=== PATIENT | female | born 1990 | race Caucasian/White ===

== ENCOUNTER 2016-08-08 13:48 | Emergency (ER) | payer OTHER ==
[~2016-08-08 13:48] MED LIST: PYRI200T4 PO; SULF1TAB47 PO; Z.0.NO CURRENT MEDS
[2016-08-08] MEDS ORDERED: TRICTAB PO (15:21)
[2016-08-08] MEDS ORDERED: METR500T10 PO (15:21)
== END 2016-08-08 15:43 | disposition home or self-care (01) ==
LOC: HOBED 13:48
DX: O26.899 Other specified pregnancy related conditions, unspecified trimester (principal); Z3A.00 Weeks of gestation of pregnancy not specified
CPT/HCPCS: 76815; 84112

== ENCOUNTER 2016-08-26 08:51 | Emergency (ER) | payer OTHER ==
[~2016-08-26 08:51] MED LIST changes: +METR500T10 PO; -PYRI200T4 PO; -SULF1TAB47 PO; +TRICTAB PO; -Z.0.NO CURRENT MEDS
--- NOTE | 2016-08-26 09:41 | PD ---
HPI Chief Complaint Reduced movements 2 days Date Seen: August 26, 2016 Time Seen: 09:15 Travel History International Travel<30 Days: No Contact w/Intl Traveler<30Days: No Known Affected Area: No History of Present Illness HPI Pt is a 25yo at 24 weeks and 4 days gestation. Patient reports previously feeling movements until 2 days ago. No fevers or chills. Denies any febrile contacts. No vaginal bleeding or leaking fluid. Para: 0 : 1 Last Menstrual Period: Mar 07, 2016 Miscarriage: 0 : 0 History Past Medical History Narrative Medical Nil significant Medical History: Denies Significant Hx Obstetric History Obstetric History history uncomplicated to date Past Surgical History Narrative Surgical Nil previous Family History Family History: Negative Social History Alcohol Use: No Tobacco Use: No Substance Abuse: No Allergies-Medications (Allergen,Severity, Reaction): Coded Allergies: No Known Allergies (Unverified , 08/07/11) Home Meds Reported Medications Vit-Ferrous Fumarate ()1 Tab Tab1 Tab PO DAILY #30 TAB Ref 0 08/08/16 Metronidazole 500 Mg [id number] Mg PO BID Ref 0 08/08/16 Review of Systems Except as stated in HPI: all other systems reviewed are Neg Physical Exam Narrative GENERAL: Well-nourished, well-developed patient. SKIN: Warm and dry. HEAD: Normocephalic and atraumatic. EYES: No scleral icterus. No injection or drainage. ENT: No nasal drainage noted. Mucous membranes pink. Airway patent. NECK: Supple, trachea midline. No JVD. CARDIOVASCULAR: Regular rate and rhythm without murmurs, gallops, or rubs. RESPIRATORY: Breath sounds equal bilaterally. No accessory muscle use. BREASTS: Bilateral exam showed no masses , no retractions, no nipple discharge. ABDOMEN/GI: Abdomen soft, non-tender, bowel sounds present, no rebound, no guarding Gravid to [24] weeks size Fundal Height: [-] GENITOURINARY: External Genitalia: intact and normal in appearance BUS glands: [-] Cervix: [-] Dilatation: [-] Effacement: [-] Station: [-] Presentation: [-] Membranes: [intact or ruptured] Uterine Contractions: [-] FHT's: Category: [1] Baseline: [150] Reactive: [-] Variability: [-] Decels: [-] movements audible NO ABDOMINAL TENDEERNESS EXTREMITIES: No cyanosis or edema. BACK: Nontender without obvious deformity. No CVA tenderness. NEUROLOGICAL: Awake and alert. Motor and sensory grossly within normal limits. Five out of 5 muscle strength in all muscle groups. Normal speech. Data Data Vital Signs Reviewed: Yes [facility] Medical Record Reviewed: Yes Plan 25yo , presents with reduced movements. Audible movements heard. Reassuring FHR on monitor. Active movements now felt by patient prior to discharge Diagnosis Diagnosis: Primary Impression: Decreased movements, affecting management of mother, antepartum Disposition: 01 DISCHARGE HOME Patient Instructions: Movement (ED) Dave De La Rosa MD August 26, 2016 09:41
== END 2016-08-26 09:52 | disposition home or self-care (01) ==
LOC: HOBED 08:51
DX: O36.8120 Decreased fetal movements, second trimester, not applicable or unspecified (principal); Z3A.24 24 weeks gestation of pregnancy
CPT/HCPCS: 59025

== ENCOUNTER 2016-11-23 10:17 | Emergency (ER) | payer OTHER ==
[~2016-11-23] VITALS: Ht 172.7 cm; Wt 74.0 kg
--- NOTE | 2016-11-23 11:42 | PD ---
HPI Chief Complaint decreased movement Date Seen: Nov 23, 2016 Time Seen: 11:39 Travel History International Travel<30 Days: No Contact w/Intl Traveler<30Days: No Known Affected Area: No History of Present Illness HPI 25-year-old who is at 37 weeks 2 days comes in complaining of decreased movement. Patient states that yesterday she felt very little movement as well as the fact this morning as well he came in to be checked. Patient states that she's been getting weekly ultrasounds due to a growth that has been at the 33rd percentile but with normal fluid and normal Doppler blood flow. No other complaints at this time denies vaginal bleeding contractions or vaginal bleeding. Weeks Gestation: 37 Para: 0 : 1 History Past Medical History Medical History: Denies Significant Hx Past Surgical History Surgical History: No Previous Surgery Family History Family History: Negative Social History Alcohol Use: No Tobacco Use: No Substance Abuse: No Allergies-Medications (Allergen,Severity, Reaction): Coded Allergies: No Known Allergies (Unverified , 08/07/11) Home Meds Reported Medications Vit-Ferrous Fumarate () 1 Tab Tab, 1 TAB PO DAILY for Nutritional Supplement, #30 TAB 0 Refills 08/08/16 Metronidazole (Metronidazole) 500 Mg Tab, 500 MG PO BID for Infection, TAB 0 Refills 08/08/16 Review of Systems Except as stated in HPI: all other systems reviewed are Neg Physical Exam Narrative GENERAL: Well-nourished, well-developed patient. SKIN: Warm and dry. HEAD: Normocephalic and atraumatic. EYES: No scleral icterus. No injection or drainage. ENT: No nasal drainage noted. Mucous membranes pink. Airway patent. NECK: Supple, trachea midline. No JVD. ABDOMEN/GI: Abdomen soft, non-tender, bowel sounds present, no rebound, no guarding Gravid to [36-] weeks size Fundal Height: [-] GENITOURINARY: Deferred External Genitalia: intact and normal in appearance BUS glands: [-Normal] Cervix: [-] Dilatation: [-] Effacement: [-] Station: [-] Presentation: [-] Membranes: [intact or ruptured] Uterine Contractions: [-Absent] FHT's: Category: [1-] Baseline: [140] Reactive: [Moderate-] Variability: [Moderate-] Decels: [-Absent] EXTREMITIES: No cyanosis or edema. BACK: Nontender without obvious deformity. No CVA tenderness. NEUROLOGICAL: Awake and alert. Motor and sensory grossly within normal limits. Five out of 5 muscle strength in all muscle groups. Normal speech. Data Data Vital Signs Reviewed: Yes [facility] Medical Record Reviewed: Yes Plan 25-year-old at 37 2/7 weeks with decreased movement with a normal nonstress test Patient has an appointment on for a BPP and NST Diagnosis Diagnosis: Primary Impression: Decreased movements, affecting management of mother, antepartum Additional Impression: 37 weeks gestation of Disposition: DISCHARGE HOME Lauren Yap MD Nov 23, 2016 11:42
== END 2016-11-23 12:15 | disposition home or self-care (01) ==
LOC: HOBED 10:17
DX: O36.8130 Decreased fetal movements, third trimester, not applicable or unspecified (principal); Z3A.37 37 weeks gestation of pregnancy
CPT/HCPCS: 59025

== ENCOUNTER 2016-11-27 08:22 | Inpatient (IN) | payer OTHER ==
[~2016-11-27] VITALS: Ht 172.7 cm; Wt 77.0 kg
[2016-11-27] VITALS (15 sets, daily range): BP systolic 101–129; BP diastolic 54–82; PULSE 60–107; RESP 15–18; TEMP 97.7–98.6
[2016-11-27] MEDS ORDERED: MINERAL OIL 10 ML VIAL TOPICAL PRN (08:45)
[2016-11-27] MEDS ORDERED: OXYTOCIN 30 UNITS-500ML PREMIX 500 ML IV ONE (08:45)
[2016-11-27] MEDS ORDERED: ONDANSETRON HCL 4 MG/2 ML VIAL IV PRN (08:45)
[2016-11-27] MEDS ORDERED: LIDOCAINE HCL 1% 50 ML VIAL INFIL PRN (08:45)
[2016-11-27] MEDS ORDERED: LACTATED RINGER'S 1000 ML INJ 1,000 ML IV PRN (08:45)
[2016-11-27] MEDS ORDERED: LIDOCAINE HCL 1% 50 ML VIAL I-DERMAL PRN (08:45)
[2016-11-27] MEDS ORDERED: SODIUM CHLORID 0.9% 500 ML INJ 500 ML IV PRN (08:45)
[2016-11-27] MEDS ORDERED: SODIUM CHLOR 0.9% 1000 ML INJ 1,000 ML OTHER PRN (08:45)
[2016-11-27] MEDS ORDERED: CITRIC ACID-SODIUM CITRATE LIQ 30 ML UDC PO SCH (08:45)
[2016-11-27] MEDS ORDERED: SODIUM CHLOR 0.9% 1000 ML INJ 1,000 ML IV PRN (09:05)
[2016-11-27] MEDS ORDERED: MISOPROSTOL 25 MCG SUPP VAGINAL ONE (09:15)
[2016-11-27] MEDS: LACTATED RINGER'S 1000 ML INJ 1,000 ML IV SCH ×3 (09:25→23:13)
[2016-11-27 09:30] LABS: AUTOMATED NEUTROPHIL # 7.2 TH/MM3 (1.8-7.7); BASOPHIL % 0.3 % (0.0-2.0); EOSINOPHIL % 0.4 % (0.0-4.0); HEMATOCRIT 35.7 % (35.0-46.0); HEMO FLAGS DIFF FINAL; LYMPH % 17.6 % (9.0-44.0); LYMPHOCYTE # 1.7 TH/MM3 (1.0-4.8); MEAN CELL VOLUME 89.2 FL (80.0-100.0); MEAN CORPUSCULAR HEMOGLOBIN 30.6 PG (27.0-34.0); MEAN CORPUSCULAR HGB CONC 34.4 % (32.0-36.0); MONO % 6.3 % (0.0-8.0); NEUT % 75.4 % (16.0-70.0); PLATELET COUNT 216 TH/MM3 (150-450); RED CELL DISTRIBUTION WIDTH 12.8 % (11.6-17.2); WHITE BLOOD COUNT 9.5 TH/MM3 (4.0-11.0)
[2016-11-27 09:32] LABS: BLOOD, URINE NEG (NEG); GLUCOSE,URINE NEG (NEG); KETONE, URINE NEG (NEG); MUCUS URINE FEW /lpf (OCC); NITRITE,URINE NEG (NEG); URINE COLOR YELLOW (YELLW/STRAW)
[2016-11-27 09:36] LABS: COMMENT (UR) CULT NOT INDICATED; CULTURE IF INDICATED CULT NOT INDICATED
--- NOTE | 2016-11-27 11:33 | HHI.HP ---
HPI Travel History International Travel<30 Days: No Contact w/Intl Traveler<30Days: No Known Affected Area: No History of Present Illness HPI 25 yo G1 with iup at 37w6d by first trimester u/s admitted for iol for iugr. She has been followed with weekly BPP and dopplers starting at 35 wk when AC and HC were noted to be under 5%ile. She notes that she is now having decreased movement; BPP 8/8 in office yesterday. Irreg ctx, no vb.lof. Para: 0 : 1 History Past Medical History Narrative Medical hsv exposrue (FOB), rubella equivocal, h/o adhd and does not need medication, mild hydronephrosis, prior recurrent uti and microscopic hematuria Past Surgical History Narrative Surgical wisdome tooth extraction. colposcopy Family History Family History: Negative Social History Alcohol Use: No Tobacco Use: No Substance Abuse: No Allergies-Medications (Allergen,Severity, Reaction): Coded Allergies: No Known Allergies (Unverified , 08/07/11) Home Meds Reported Medications Vit-Ferrous Fumarate () 1 Tab Tab, 1 TAB PO DAILY for Nutritional Supplement, #30 TAB 0 Refills 08/08/16 Metronidazole (Metronidazole) 500 Mg Tab, 500 MG PO BID for Infection, TAB 0 Refills 08/08/16 Review of Systems General / Constitutional: No: Fever, Weight Gain, Chills, Other Eyes: No: Diploplia, Blurred Vision, Visual changes, Pain, Photophobia HENT: No: Headaches, Vertigo, Lightheadedness Cardiovascular: No: Irregular Rhythm, Chest Pain or Discomfort, Palpitations, Tachycardia, Syncope, Varicosities, Edema, Cyanosis Respiratory: No: Cough, Short of Breath, Other Gastrointestinal: No: Nausea, Vomiting, Diarrhea Genitourinary: No: Decreased Urinary Output, Oliguria Musculoskeletal: No: Limited ROM, Weakness, Cramping, Edema, Pain Skin: No Rash, No Itching, No Dryness, No Lumps, No Change in Pigmentation, No Change in Nails, No Alopecia, No Lesions Neurologic: No: Weakness, Dizziness, Syncope, Focal Abnormalities, Coordination Problem, Headache, Slurred Speech, Seizures Psychiatric: No: Depression, Suicidal Ideations, Homicidal Ideation Endocrine: No: Heat Intolerance, Cold Intolerance, Polydipsia, Polyuria, Other Physical Exam Vital Signs Date Time Temp Pulse Resp B/P (MAP) Pulse Ox O2 Delivery O2 Flow Rate FiO2 11/27/16 09:30 98.6 16 11/27/16 09:23 89 120/80 (93) 11/27/16 08:44 107 117/76 (90) Narrative GENERAL: Well-nourished, well-developed patient. SKIN: Warm and dry. HEAD: Normocephalic and atraumatic. EYES: No scleral icterus. No injection or drainage. ENT: No nasal drainage noted. Mucous membranes pink. Airway patent. NECK: Supple, trachea midline. No JVD. CARDIOVASCULAR: Regular rate and rhythm without murmurs, gallops, or rubs. RESPIRATORY: Breath sounds equal bilaterally. No accessory muscle use. BREASTS: Bilateral exam showed no masses , no retractions, no nipple discharge. ABDOMEN/GI: Abdomen soft, non-tender, bowel sounds present, no rebound, no guarding Gravid [id number] size GENITOURINARY: External Genitalia: intact and normal in appearance Cervix: ft/50/-2 posterior, soft Presentation:ceph Membranes: [intact Uterine Contractions: [-] FHT's: Category:I EXTREMITIES: No cyanosis or edema. BACK: Nontender without obvious deformity. No CVA tenderness. NEUROLOGICAL: Awake and alert. Motor and sensory grossly within normal limits. Five out of 5 muscle strength in all muscle groups. Normal speech. Caprini VTE Risk Assessment Caprini VTE Risk Assessment: No/Low Risk (score <= 1) VTE Pharm Contraindication: High risk for bleeding Caprini Risk Assessment Model Point Value = 1 Point Value = 2 Point Value = 3 Point Value = 5 Age 41-60 Minor surgery BMI > 25 kg/m2 Swollen legs Varicose veins or History of unexplained or recurrent spontaneous Oral contraceptives or hormone replacement Sepsis (< 1 month) Serious lung disease, including pneumonia (< 1 month) Abnormal pulmonary function Acute myocardial infarction Congestive heart failure (< 1 month) History of inflammatory bowel disease Medical patient at bed rest Age 61-74 Arthroscopic surgery Major open surgery (> 45 min) Laparoscopic surgery (> 45 min) Malignancy Confined to bed (> 72 hours) Immobilizing plaster cast Central venous access Age >= 75 History of VTE Family history of VTE Factor V Leiden Prothrombin [id number] Lupus anticoagulant Anticardiolipin antibodies Elevated serum homocysteine Heparin-induced thrombocytopenia Other congenital or acquired thrombophilia Stroke (< 1 month) Elective arthroplasty Hip, pelvis, or leg fracture Acute spinal cord injury (< 1 month) Prophylaxis Regimen Total Risk Factor Score Risk Level Prophylaxis Regimen 0-1 Low Early ambulation 2 Moderate Order ONE of the following: *Sequential Compression Device (SCD) *Heparin 5000 units SQ BID 3-4 Higher Order ONE of the following medications: *Heparin 5000 units SQ TID *Enoxaparin/Lovenox 40 mg SQ daily (WT < 150 kg, CrCl > 30 mL/min) *Enoxaparin/Lovenox 30 mg SQ daily (WT < 150 kg, CrCl > 10-29 mL/min) *Enoxaparin/Lovenox 30 mg SQ BID (WT < 150 kg, CrCl > 30 mL/min) AND/OR *Sequential Compression Device (SCD) 5 or more Highest Order ONE of the following medications: *Heparin 5000 units SQ TID (Preferred with Epidurals) *Enoxaparin/Lovenox 40 mg SQ daily (WT < 150 kg, CrCl > 30 mL/min) *Enoxaparin/Lovenox 30 mg SQ daily (WT < 150 kg, CrCl > 10-29 mL/min) *Enoxaparin/Lovenox 30 mg SQ BID (WT < 150 kg, CrCl > 30 mL/min) AND *Sequential Compression Device (SCD) Data Data Vital Signs Reviewed: Yes Orders Orders Admit To Inpatient (11/27/16 ) Vital Signs (Adult) .Per protocol (11/27/16 08:45) Heart (11/27/16 08:45) Amnioinfusion (11/27/16 08:45) Urinary Catheter Management .ONCE (11/27/16 08:45) Diet Liquid (11/27/16 Breakfast) Lactated Ringer's 1000 Ml Inj (Lr 1000 M (11/27/16 08:45) Lactated Ringer's 1000 Ml Inj (Lr 1000 M (11/27/16 08:45) Sodium Chlorid 0.9% 500 Ml Inj (Ns 500 M (11/27/16 08:45) Sodium Chlor 0.9% 1000 Ml Inj (Ns 1000 M (11/27/16 09:05) Lidocaine 1% Inj (50 Ml) (Xylocaine 1% I (11/27/16 08:45) Citric Acid-Sodium Citrate Liq (Bicitra (11/27/16 08:45) Ondansetron Inj (Zofran Inj) (11/27/16 08:45) Fentanyl Inj (Fentanyl Inj) (11/27/16 08:45) Fentanyl Inj (Fentanyl Inj) (11/27/16 08:45) Complete Blood Count With Diff (11/27/16 08:45) Hold Clot (11/27/16 08:45) Abo/Rh Blood Type (11/27/16 08:45) Urinalysis - C+S If Indicated (11/27/16 08:45) Resp Oxygen Non Rebreathe Mask (11/27/16 ) ^ Epidural / Intrathecal Infus (11/27/16 08:45) Oxytocin 30 Units-500ml Premix (Pitocin (11/27/16 08:45) Lidocaine 1% Inj (50 Ml) (Xylocaine 1% I (11/27/16 08:45) Light Mineral Oil (Muri-Lube Oil) (11/27/16 08:45) ^ Labor Induction (11/27/16 08:45) ^ Vaginal Insert (11/27/16 08:45) ^ Vaginal Lavage (11/27/16 08:45) Heart (11/27/16 08:45) Sodium Chlor 0.9% 1000 Ml Inj (Ns 1000 M (11/27/16 08:45) Misoprostol Supp (Cytotec Supp) (11/27/16 09:15) Misoprostol Supp (Cytotec Supp) (11/27/16 12:45) Inpatient Certification (11/27/16 ) Specimen To Be Collected PRN (11/27/16 08:45) Group B Strep: Negative Labs Laboratory Tests Test 11/27/16 08:50 White Blood Count 9.5 Red Blood Count 4.00 Hemoglobin 12.3 Hematocrit 35.7 Mean Corpuscular Volume 89.2 Mean Corpuscular Hemoglobin 30.6 Mean Corpuscular Hemoglobin Concent 34.4 Red Cell Distribution Width 12.8 Platelet Count 216 Mean Platelet Volume 7.7 Neutrophils (%) (Auto) 75.4 Lymphocytes (%) (Auto) 17.6 Monocytes (%) (Auto) 6.3 Eosinophils (%) (Auto) 0.4 Basophils (%) (Auto) 0.3 Neutrophils # (Auto) 7.2 Lymphocytes # (Auto) 1.7 Monocytes # (Auto) 0.6 Eosinophils # (Auto) 0.0 Basophils # (Auto) 0.0 CBC Comment DIFF FINAL Differential Comment Urine Color YELLOW Urine Turbidity CLEAR Urine pH 6.0 Urine Specific [place] 1.014 Urine Protein NEG Urine Glucose (UA) NEG Urine Ketones NEG Urine Occult Blood NEG Urine Nitrite NEG Urine Bilirubin NEG Urine Urobilinogen LESS THAN 2.0 Urine Leukocyte Esterase TRACE Urine WBC 1 Urine Mucus FEW Microscopic Urinalysis Comment CULT NOT INDICATED Assessment/Plan Problem List: (1) IUGR (intrauterine growth restriction) affecting care of mother ICD Codes: O36.5990 - Maternal care for other known or suspected poor growth, unspecified trimester, not applicable or unspecified Status: Chronic Qualifiers: Qualified Codes: O36.5930 - Maternal care for other known or suspected poor growth, third trimester, not applicable or unspecified Assessment and Plan 25 yo G1 with iup 37w6d by first trimester u/s here for iol for iugr 1) IOL- will start with cervical ripening agent. Aware that induction can be 24- 36 hours, possibility of failure 2) Exposure to HVS- on Valtrex prophylaxis. No lesions on exam; no prodrome 3) Rubella equivocal- pp vaccination 4) Fetus- IUGR, nl dopplers and bpp weekly in office. Cephalic 5) GBS negative 6) H/o ADHD- no adderall use during Kassi Fitzgerald MD Nov 27, 2016 11:33
[2016-11-27] MEDS ORDERED: MISOPROSTOL 25 MCG SUPP VAGINAL PRN (12:45)
--- NOTE | 2016-11-27 15:07 | PD.LABORPN ---
Subjective Subjective pt comfortable, starting to feel mild contractions on second dose of misoprostol Objective Vital Signs Vital Signs Date Time Temp Pulse Resp B/P (MAP) Pulse Ox O2 Delivery O2 Flow Rate FiO2 11/27/16 13:30 98.1 16 11/27/16 13:25 70 129/65 (86) 11/27/16 11:30 16 11/27/16 11:17 86 120/79 (93) 11/27/16 09:30 98.6 16 11/27/16 09:23 89 120/80 (93) 11/27/16 08:44 107 117/76 (90) Objective Pelvic Exam: deferred. Nurse exam /-2 posterior, soft Presentation:ceph Membranes: [intact Uterine Contractions: q2-3 min FHT's: Category:I Baseline: 120 Reactive: y Variability:mod Decels: [-] Weeks Gestation: 37 Gest Age Assessed Date: Nov 27, 2016 Gest Age Assessed Time: 15:06 Pt started active labor?: No Medical induction of labor?: Yes Medical induction start date: Nov 27, 2016 Medical induction start time: 09:25 Artificial rupture of membrane: No Assessment/Plan Problem List: (1) IUGR (intrauterine growth restriction) affecting care of mother ICD Codes: O36.5990 - Maternal care for other known or suspected poor growth, unspecified trimester, not applicable or unspecified Status: Chronic Qualifiers: Qualified Codes: O36.5930 - Maternal care for other known or suspected poor growth, third trimester, not applicable or unspecified Assessment and Plan 25 yo G1 with iup 37w6d by first trimester u/s here for iol for iugr 1) IOL-on second dose of vaginal misoprostol. ctx q 2-3 min now. Will re- evaluate 4 hr post insertion to determine next step of induction 2) Exposure to HVS- on Valtrex prophylaxis. No lesions on exam; no prodrome 3) Rubella equivocal- pp vaccination 4) Fetus- IUGR, nl dopplers and bpp weekly in office. Cephalic 5) GBS negative 6) H/o ADHD- no adderall use during Kassi Fitzgerald MD Nov 27, 2016 15:07
[2016-11-27] MEDS ORDERED: DINOPROSTONE 10 MG VAG INSERT VAGINAL ONE (18:00)
[2016-11-28] VITALS (52 sets, daily range): BP systolic 95–143; BP diastolic 58–93; PULSE 66–109; RESP 12–18; TEMP 97.8–98.4
[2016-11-28] MEDS: LACTATED RINGER'S 1000 ML INJ 1,000 ML IV SCH (09:04)
[2016-11-28] MEDS ORDERED: OXYTOCIN 30 UNITS/NS 500ML PREMIX IV SCH (09:15)
--- NOTE | 2016-11-28 10:30 | PD.LABORPN ---
Subjective Subjective pt comfortable right now, s/p cytotec x2 yesterday, cervidil last night, now on pit Objective Vital Signs Vital Signs Date Time Temp Pulse Resp B/P (MAP) Pulse Ox O2 Delivery O2 Flow Rate FiO2 11/28/16 09:33 18 11/28/16 09:32 93 129/74 (92) 11/28/16 07:30 98.0 11/28/16 07:13 16 11/28/16 07:11 72 133/83 (100) 11/28/16 06:00 66 106/70 (82) 11/28/16 05:00 88 12 123/75 (91) 11/28/16 04:00 14 11/28/16 04:00 97.8 11/28/16 04:00 87 107/69 (82) 11/28/16 03:00 71 13 106/65 (79) Objective Pelvic Exam: Cervix: [-] Dilatation: [-] 1 Effacement: [-] Station: [-] -2 Presentation: [-] Membranes: [intact or ruptured] intact Uterine Contractions: [-] q 5min FHT's: Category: [-] 1 Baseline: [-] Reactive: [-] R Variability: [-] Decels: [-] Weeks Gestation: 38 Gest Age Assessed Date: Nov 28, 2016 Gest Age Assessed Time: 10:29 Pt started active labor?: No Medical induction of labor?: Yes Medical induction start date: Nov 27, 2016 Medical induction start time: 09:25 Artificial rupture of membrane: No Assessment/Plan Problem List: (1) IUGR (intrauterine growth restriction) affecting care of mother ICD Codes: O36.5990 - Maternal care for other known or suspected poor growth, unspecified trimester, not applicable or unspecified Status: Chronic Qualifiers: Qualified Codes: O36.5930 - Maternal care for other known or suspected poor growth, third trimester, not applicable or unspecified Assessment and Plan IUP at 38wk, IOL for IUGR f/u labor progress, analgesia prn Pau Robledo MD Nov 28, 2016 10:30
[2016-11-28] MEDS ORDERED: DIPHTH/TETANUS/ACEL PERTUSSIS (BOOSTER) 0.5 ML VIAL/PFS IM ONE (16:00)
[2016-11-28] MEDS ORDERED: MEASLES, MUMPS, RUBELLA VACCINE 0.5 ML VIAL SQ ONE (16:00)
[2016-11-28] MEDS ORDERED: fentaNYL 2MCG-BUPIV 0.125% INJ 100 ML ONE (17:30)
[2016-11-28] MEDS ORDERED: DO NOT ADMINISTER ANTICOAGULANTS PRN (19:00)
[2016-11-28] MEDS ORDERED: NO SYSTEM NARCOTICS PRN (19:00)
[2016-11-28] MEDS ORDERED: fentaNYL 2MCG-BUPIV 0.125% 100 ML EPIDURAL SCH (19:00)
[2016-11-28] MEDS ORDERED: ePHEDrine/NS 25 MG/5 ML SYR IV PRN (19:00)
--- NOTE | 2016-11-28 22:24 | PD.OB.DELI ---
Weeks gestation: 38 Gest age assessed date: Nov 28, 2016 Gest age assessed time: 10:29 Pt started active labor?: Yes Medical induction of labor?: Yes Medical induction start date: Nov 27, 2016 Medical induction start time: 09:25 Artificial rupture of membrane: Yes Anesthesia: Epidural Episiotomy: Midline Vaginal Delivery: Normal Presentation: Occiput anterior : Male Delivery date: Nov 28, 2016 Delivery time: 22:05 One Minute : 8 Five Minute : 9 Weight: 6-10 Placenta: Spontaneous delivery Laceration: Episiotomy, 1 deg Repair: Chromic interrupted, Vicryl running Estimated blood loss: 300cc Pau So MD Nov 28, 2016 22:24
[2016-11-28] MEDS ORDERED: OXYTOCIN 30 UNITS-500ML PREMIX 500 ML IV SCH (22:30)
[2016-11-28] MEDS ORDERED: SODIUM CHLORIDE 0.9% FLUSH 10 ML FLUSH IV FLUSH PRN (22:30)
[2016-11-28] MEDS ORDERED: DOCUSATE SODIUM 50 MG/SENNA 8.6 MG TAB PO PRN (22:30)
[2016-11-28] MEDS ORDERED: WITCH HAZEL 50%/GLYCERIN 12.5% 40 PAD JAR TOPICAL PRN (22:30)
[2016-11-28] MEDS ORDERED: ZOLPIDEM TARTRATE 5 MG TAB PO PRN (22:30)
[2016-11-28] MEDS ORDERED: ALUMINUM/MAGNESIUM/SIMETH 30 ML CUP PO PRN (22:30)
[2016-11-28] MEDS ORDERED: BENZOCAINE 20% TOPICAL SPRAY 60 ML CAN TOPICAL PRN (22:30)
[2016-11-28] MEDS ORDERED: ONDANSETRON ODT 4 MG TAB PO PRN (22:30)
[2016-11-28] MEDS: IBUPROFEN 600 MG TAB PO PRN (22:45)
[2016-11-29] VITALS: BP 133/73; PULSE 81
[2016-11-29 00:15] VITALS: BP 134/80; PULSE 83
[2016-11-29 01:00] VITALS: BP 117/69; PULSE 88; RESP 18; TEMP 98.3
[2016-11-29 05:45] VITALS: BP 116/69; PULSE 76; RESP 18; TEMP 98.6
[2016-11-29 08:00] VITALS: BP 112/72; PULSE 77; RESP 18; TEMP 98
[2016-11-29] MEDS ORDERED: SODIUM CHLORIDE 0.9% FLUSH 10 ML FLUSH IV FLUSH SCH (09:00)
--- NOTE | 2016-11-29 09:05 | HHI.OB ---
Subjective Post Day: 1 Remarks no complaints, Objective Vitals/I&O Vital Signs Date Time Temp Pulse Resp B/P (MAP) Pulse Ox O2 Delivery O2 Flow Rate FiO2 11/29/16 05:45 116/69 (85) 11/29/16 05:45 98.6 76 18 11/29/16 01:00 98.3 18 11/29/16 01:00 88 117/69 (85) 11/29/16 00:15 83 134/80 (98) 11/29/16 00:00 81 133/73 (93) 11/28/16 23:46 87 124/70 (88) 11/28/16 23:30 80 127/67 (87) 11/28/16 23:30 80 127/67 (87) 11/28/16 23:15 86 15 120/68 (85) 11/28/16 23:00 15 11/28/16 23:00 80 132/81 (98) 11/28/16 22:45 80 127/73 (91) 11/28/16 22:37 98.4 16 11/28/16 22:32 87 131/70 (90) 11/28/16 22:27 18 11/28/16 22:15 94 129/86 (100) 11/28/16 21:45 106 129/74 (92) 11/28/16 21:30 94 115/72 (86) 11/28/16 21:04 109 139/85 (103) 11/28/16 21:00 109 129/91 (104) 11/28/16 20:15 12 11/28/16 20:15 16 11/28/16 20:00 97 112/88 (96) 11/28/16 19:00 76 120/65 (83) 11/28/16 18:30 98.3 18 11/28/16 18:25 87 11/28/16 18:20 86 11/28/16 18:18 83 123/71 (88) 11/28/16 18:15 76 11/28/16 18:10 82 11/28/16 18:05 77 11/28/16 18:05 82 119/58 (78) 11/28/16 18:01 86 128/83 (98) 11/28/16 18:00 86 11/28/16 17:59 85 136/81 (99) 11/28/16 17:55 90 11/28/16 17:25 80 143/83 (103) 11/28/16 16:00 69 137/87 (104) 11/28/16 15:49 98.3 18 11/28/16 15:21 67 128/68 (88) 11/28/16 14:06 67 129/76 (93) 11/28/16 14:02 73 11/28/16 12:55 75 142/93 (109) 11/28/16 11:32 86 123/84 (97) 11/28/16 11:31 98.2 11/28/16 11:31 18 11/28/16 11:03 78 16 120/64 (82) 11/28/16 10:33 16 11/28/16 10:31 96 124/63 (83) 11/28/16 09:33 18 11/28/16 09:32 93 129/74 (92) Objective Remarks GENERAL: Well-nourished, well-developed patient. CARDIOVASCULAR: Regular rate and rhythm without murmurs, gallops, or rubs. RESPIRATORY: Breath sounds equal bilaterally. No accessory muscle use. ABDOMEN/GI: Abdomen soft, non-tender. Fundus: Firm, non-tender at umbilicus. GENITOURINARY: Light to moderate bleeding. EXTREMITIES: No cyanosis or edema, non-tender, without signs of DVT. Medications and IVs Current Medications Medications (Trade) Dose Ordered Sig/[place] Route Start Time Stop Time Status Last Admin (NS Flush) 2 ml BID IV FLUSH 11/29/16 09:00 (NS Flush) 2 ml UNSCH PRN IV FLUSH 11/28/16 22:30 (Tylenol) 650 mg Q4H PRN PO 11/28/16 22:30 (Motrin) 600 mg Q6H PRN PO 11/28/16 22:30 11/28/16 22:45 (Americaine 20% Top Spr) 1 spray Q4H PRN TOPICAL 11/28/16 22:30 (Tucks Pads) 1 applic QID PRN TOPICAL 11/28/16 22:30 (Lena-Colace) 2 tab Q12H PRN PO 11/28/16 22:30 (Ambien) 5 mg HS PRN PO 11/28/16 22:30 (Mag-Al Plus Susp Liq) 15 ml Q8H PRN PO 11/28/16 22:30 (Zofran Odt) 4 mg Q6H PRN PO 11/28/16 22:30 Assessment/Plan Problem List: (1) IUGR (intrauterine growth restriction) affecting care of mother ICD Codes: O36.5990 - Maternal care for other known or suspected poor growth, unspecified trimester, not applicable or unspecified Status: Chronic Qualifiers: Qualified Codes: O36.5930 - Maternal care for other known or suspected poor growth, third trimester, not applicable or unspecified (2) Vaginal delivery ICD Codes: O80 - Encounter for full-term uncomplicated delivery Status: Acute Assessment and Plan s/p PPD #1 routine PP care Discharge Planning routine Attending Attestation pt seen by Pau Sylvester MD Nov 29, 2016 09:05
[2016-11-29] MEDS: IBUPROFEN 600 MG TAB PO PRN ×2 (11:34→17:37)
[2016-11-29] MEDS: ACETAMINOPHEN 325 MG TAB PO PRN ×2 (11:36→17:38)
[2016-11-29 21:00] VITALS: BP 116/77; PULSE 71; RESP 18; TEMP 98.4
[2016-11-30] MEDS: IBUPROFEN 600 MG TAB PO PRN ×2 (01:03→08:54)
[2016-11-30] MEDS: ACETAMINOPHEN 325 MG TAB PO PRN ×2 (01:07→08:54)
[2016-11-30 07:35] VITALS: BP 131/92; PULSE 68; RESP 16; TEMP 97.8
[2016-11-30 08:30] VITALS: BP 127/81; PULSE 62; RESP 16; TEMP 97.8
--- NOTE | 2016-11-30 11:28 | HHI.OB ---
Subjective Post Day: 2 Objective Vitals/I&O Vital Signs Date Time Temp Pulse Resp B/P (MAP) Pulse Ox O2 Delivery O2 Flow Rate FiO2 11/30/16 08:30 62 11/30/16 08:30 127/81 (96) 11/30/16 08:30 97.8 16 11/30/16 07:35 97.8 68 16 131/92 (105) 11/29/16 21:00 98.4 11/29/16 21:00 71 18 116/77 (90) Objective Remarks GENERAL: Well-nourished, well-developed patient. CARDIOVASCULAR: Regular rate and rhythm without murmurs, gallops, or rubs. RESPIRATORY: Breath sounds equal bilaterally. No accessory muscle use. ABDOMEN/GI: Abdomen soft, non-tender. Fundus: Firm, non-tender at umbilicus. GENITOURINARY: Light to moderate bleeding. EXTREMITIES: No cyanosis or edema, non-tender, without signs of DVT. Medications and IVs Current Medications Medications (Trade) Dose Ordered Sig/[place] Route Start Time Stop Time Status Last Admin (NS Flush) 2 ml BID IV FLUSH 11/29/16 09:00 (NS Flush) 2 ml UNSCH PRN IV FLUSH 11/28/16 22:30 (Tylenol) 650 mg Q4H PRN PO 11/28/16 22:30 11/30/16 08:54 (Motrin) 600 mg Q6H PRN PO 11/28/16 22:30 11/30/16 08:54 (Americaine 20% Top Spr) 1 spray Q4H PRN TOPICAL 11/28/16 22:30 (Tucks Pads) 1 applic QID PRN TOPICAL 11/28/16 22:30 (Lena-Colace) 2 tab Q12H PRN PO 11/28/16 22:30 (Ambien) 5 mg HS PRN PO 11/28/16 22:30 (Mag-Al Plus Susp Liq) 15 ml Q8H PRN PO 11/28/16 22:30 (Zofran Odt) 4 mg Q6H PRN PO 11/28/16 22:30 Assessment/Plan Problem List: (1) IUGR (intrauterine growth restriction) affecting care of mother ICD Codes: O36.5990 - Maternal care for other known or suspected poor growth, unspecified trimester, not applicable or unspecified Status: Chronic Qualifiers: Qualified Codes: O36.5930 - Maternal care for other known or suspected poor growth, third trimester, not applicable or unspecified (2) Vaginal delivery ICD Codes: O80 - Encounter for full-term uncomplicated delivery Status: Acute Assessment and Plan s/p PPD #2 routine PP care d/c to home today Discharge Planning routine Amaya Peterson MD Nov 30, 2016 11:28
[2016-11-30] MEDS ORDERED: IBUP-232 PO (11:29)
[2016-11-30] MEDS ORDERED: SENN1TAB PO (11:29)
--- NOTE | 2016-11-30 11:30 | HHI.DCPOC ---
Discharge Care Plan Diagnosis: (1) Vaginal delivery Your Health Problems Are: Vaginal delivery Report Symptoms to Your Doctor -Temperature above 100.5 degrees -Redness, of incision or excessive or foul smelling drainage -Unusual pain or calf pain -Increased vaginal bleeding -Painful or difficulty urinating -Feelings of extreme sadness or anxiety after 2 weeks Goals to Promote Your Health * To prevent worsening of your condition and complications * To maintain your health at the optimal level Directions to Meet Your Goals Take your medications as prescribed Follow your dietary instruction Follow activity as directed Ensure plenty of rest for recovery Drink fluids for hydration Keep your appointments as scheduled Take your immunizations and boosters as scheduled If your symptoms worsen call your PCP, if no PCP go to Urgent Care Center or Emergency Room Smoking is Dangerous to Your Health. Avoid second hand smoke Call the 24-hour crisis hotline for domestic abuse at Amaya Peterson MD Nov 30, 2016 11:29
== END 2016-11-30 12:47 | disposition home or self-care (01) | DRG 775 ==
LOC: H2EB 08:22 → H1EA 11-29 00:34
PROVIDERS: ADMIT Obstetrics & Gynecology; ATTEND Obstetrics & Gynecology
PROC: 3E0P7GC Introduction of Other Therapeutic Substance into Female Reproductive, Via Natural or Artificial Opening (ICD-10-PCS; 2016-11-27)
PROC: 3E033VJ Introduction of Other Hormone into Peripheral Vein, Percutaneous Approach (ICD-10-PCS; 2016-11-27)
PROC: 10E0XZZ Delivery of Products of Conception, External Approach (ICD-10-PCS; principal; 2016-11-28)
PROC: 10907ZC Drainage of Amniotic Fluid, Therapeutic from Products of Conception, Via Natural or Artificial Opening (ICD-10-PCS; 2016-11-28)
PROC: 0W8NXZZ Division of Female Perineum, External Approach (ICD-10-PCS; 2016-11-28)
PROC: 0HQ9XZZ Repair Perineum Skin, External Approach (ICD-10-PCS; 2016-11-28)
DX: O36.5930 Maternal care for other known or suspected poor fetal growth, third trimester, not applicable or unspecified (principal); O36.8130 Decreased fetal movements, third trimester, not applicable or unspecified; O70.0 First degree perineal laceration during delivery; Z37.0 Single live birth; Z3A.37 37 weeks gestation of pregnancy
CPT/HCPCS: 59025; 81001; 85025; 86900; 86901; 90707; J2590; J7120

== ENCOUNTER 2017-05-29 13:58 | Emergency (ER) | payer OTHER ==
[~2017-05-29 13:58] MED LIST changes: +IBUP-232 PO; -METR500T10 PO; +SENN1TAB PO
[2017-05-29 14:02] VITALS: BP 118/80; PULSE 92; RESP 12; TEMP 98.4; O2SAT 100
[2017-05-29] MEDS ORDERED: BUPR150CR PO (14:28)
[2017-05-29] MEDS ORDERED: ADDE10XR PO (14:28)
--- NOTE | 2017-05-29 14:34 | PD ---
HPI Chief Complaint: Pill Maker Problem/Complaint Time Seen by Provider: 14:24 Travel History International Travel<30 days: No Contact w/Intl Traveler<30days: No Traveled to known affect area: No History of Present Illness HPI 26-year-old female presents to the emergency department with complaint of a tampon stuck in her vagina since about 5 PM last night. She said she went in last night and then she went out and drank alcohol and forgot that she had a Charmaine had intercourse. She has tried getting it out but is unable to. She denies any abnormal vaginal discharge, odor, itch. Denies dysuria. Denies fever, vomiting. Denies pelvic or abdominal pain. Primary care provider is Dr. Ricci. No known allergies. Denies significant past medical history. Has no other medical complaints. No other modifying factors or associated signs and symptoms. PFSH Past Medical History Depression: Yes (POST PARDEM) ?: Not Social History Alcohol Use: No Tobacco Use: No Substance Use: No Allergies-Medications (Allergen,Severity, Reaction): Coded Allergies: No Known Allergies (Unverified Adverse Reaction, Unknown, 05/29/17) Reported Meds & Prescriptions Reported Meds & Active Scripts Active Reported Adderall Xr 24 HR (Amphetamine/Dextroamphetamine) 10 Mg Cap 10 Mg PO DAILY Once daily in the morning. Wellbutrin SR 12 HR (Bupropion HCl) 150 Mg Tab 150 Mg PO DAILY Review of Systems Except as stated in HPI: all other systems reviewed are Neg Physical Exam Narrative GENERAL: Well-nourished, well-developed female patient, in no acute distress; afebrile, nontoxic-appearing SKIN: Warm and dry. HEAD: Atraumatic. Normocephalic. EYES: Pupils equal and round. No scleral icterus. No injection or drainage. ENT: Mucous membranes pink and moist. NECK: Trachea midline. No lymphadenopathy. CARDIOVASCULAR: Regular rate. RESPIRATORY: No accessory muscle use. GASTROINTESTINAL: Flat. PELVIC: Exam done in the presence of a nurse. Speculum exam reveals retained tampon; retained tampon successfully removed. No abnormal vaginal discharge or odor noted. MUSCULOSKELETAL: No obvious deformities. No clubbing. No cyanosis. No edema. NEUROLOGICAL: Awake and alert. No obvious cranial nerve deficits. Motor grossly within normal limits. Normal speech. PSYCHIATRIC: Appropriate mood and affect; insight and judgment normal. Data Data Last Documented VS Vital Signs Date Time Temp Pulse Resp B/P (MAP) Pulse Ox O2 Delivery O2 Flow Rate FiO2 05/29/17 14:02 98.4 92 12 118/80 (93) 100 Room Air Orders Orders Ed Discharge Order (05/29/17 14:42) MDM Medical Decision Making Medical Screen Exam Complete: Yes Emergency Medical Condition: Yes Medical Record Reviewed: Yes Differential Diagnosis Retained tampon, foreign body, medical clearance Narrative Course 26-year-old female with retained tampon. Retained tampon successfully removed. Instructed patient to follow-up with hem marker. Instructed patient to follow up with primary care provider. Patient verbalizes understanding and agreement with treatment plan. Patient is medically cleared and stable for discharge. Discussed reasons to return to the emergency department. Patient agrees with treatment plan. The patients vital signs are stable and the patient is stable for outpatient follow-up and treatment. Patient discharged home, stable and in no acute distress. Diagnosis Primary Impression: Retained tampon Qualified Codes: T19.2XXA - Foreign body in vulva and vagina, initial encounter Referrals: Front End Software Engineer Primary Care Physician Patient Instructions: General Instructions Additional Instructions: Follow up with hem marker Follow-up with primary care provider Return to the emergency department immediately with worsening of symptoms Med/Other Pt SpecificInfo: No Change to Meds, No Meds Exist/No RX given Disposition: 01 DISCHARGE HOME Condition: Stable Gilda Reddy May 29, 2017 14:34
== END 2017-05-29 14:59 | disposition home or self-care (01) ==
LOC: NEPD 13:58
DX: T19.2XXA Foreign body in vulva and vagina, initial encounter (principal)
CPT/HCPCS: 99282